=== PATIENT | male | born 1960 | race Caucasian/White ===

== ENCOUNTER 2017-12-18 20:35 | Emergency (ER) | payer SELFPAY ==
[~2017-12-18] VITALS: Ht 160 cm; Wt 68.2 kg
[2017-12-18 20:57] VITALS: BP 149/89
[2017-12-18 21:08] LABS: GLUCOSE,POINT OF CARE 217 MG/DL (70-110)
[2017-12-18] MEDS ORDERED: IBUPROFEN 800 MG TABLET PO ONE (22:15)
[2017-12-18] MEDS ORDERED: GENTAMICIN SULFATE 0.3% OPHTHALMIC SOLUTION 5 ML OS ONE (22:15)
[2017-12-18] MEDS ORDERED: PROPARACAINE/FLUORESCEIN SOD 0.5-0.25% 0.5 ML OPHTHALMIC SOLUTION OS ONE (22:15)
[2017-12-18] MEDS ORDERED: ACETAMINOPHEN/CODEINE 300-30 MG TABLET PO ONE (23:30)
[2017-12-18] MEDS ORDERED: ERYTHROMYCIN 0.5% 3.5 GM TUBE OPHTHALMIC OINTMENT OS ONE (23:30)
== END 2017-12-18 23:56 | disposition home or self-care (01) ==
LOC: EMS 20:38
DX: T15.02XA Foreign body in cornea, left eye, initial encounter (principal); E11.9 Type 2 diabetes mellitus without complications; X58.XXXA Exposure to other specified factors, initial encounter; Y93.89 Activity, other specified; Y92.89 Other specified places as the place of occurrence of the external cause; Y99.8 Other external cause status
CPT/HCPCS: 65222; 82962; 99284; Z7610